=== PATIENT | male | born 1960 | race Two or more races ===

== ENCOUNTER 2020-09-12 17:22 | Inpatient (IN) ==
--- NOTE | 2020-09-12 20:24 | Emergency Department Note ---
History of Present Illness General Chief complaint: Illness Time Seen by Provider: 09/12/20 20:10 Source: patient History of Present Illness Provider complaint: Fever and chills Onset (ago): week(s) Location: head Pain Consistency: + intermittent Quality: + other (Fever and chills) Relieved By: + medication Associated symptoms: + cough, + fever/chills, + headaches, + shortness of breath (Occasional), + weakness and + other (Left rib pain); no chest pain or no nausea/vomiting This is a 60-year-old male who is HIV positive presenting with fever and chills since August 14. The patient is a heavy drinker of alcohol but he stopped drinking heavily late last month. He normally drinks about 3-4 times a week. Soon after wards he developed fever and chills. He did not take his temperature but felt feverish. He initially had profuse diarrhea but that has since resolved. He had a normal bowel movement yesterday. He has been having occasional headaches but states that he has no headache currently. He states he only gets a headache when he has the fever. He denies any chest pain but does state that he has been feeling very lightheaded and he fell 2 weeks ago onto his left ribs where he has some pain. He states is better now because he took some ibuprofen. He has some occasional shortness of breath. He denies any abdominal pain or vomiting. He did develop a cough several days ago. He is fully vaccinated for the Covid 19. He does state that he has some burning on urination. He states he has had a no rmal appetite and has been eating regularly. He had blood work for his HIV about a month ago and had a good CD4 count and an undetectable viral load. He is compliant with his medications. He denies any sick contacts or known exposure to COVID-19. Home Medications Medication Instructions Recorded Confirmed Type bictegravir 50 mg-emtricitabine 1 tab PO QAM 09/12/20 09/12/20 History 200 mg-tenofovir alafenam 25 mg tablet (Biktarvy) ibuprofen 200 mg tablet 400 mg PO Q6H PRN 09/12/20 09/12/20 History lisinopril 10 1 tab PO QAM 09/12/20 09/12/20 History mg-hydrochlorothiazide 12.5 mg tablet tamsulosin 0.4 mg capsule 0.4 mg PO PM 09/12/20 09/12/20 History Allergies Allergy/AdvReac Type Severity Reaction Status Date / Time No Known Allergies Allergy Unverified 09/12/20 21:50 Past Med/Surg History Medical History HIV positive Hypertension Social History Smoking Status: Never smoker Feels Safe at Home: Yes Review of Systems See HPI for pertinent positives & negatives. and A total of 10 systems reviewed and were otherwise negative Physical Exam Vital Signs Vital Signs - 24 hr 09/12/20 18:01 09/12/20 20:51 09/12/20 21:05 Temperature 36.7 C Temperature Source Skin Pulse Rate 110 H Pulse Rate from SpO2 Sensor 115 H Respiratory Rate 18 18 20 Respiratory Effort / Characteristics Non-Labored Spontaneous Respiratory Depth Normal Blood Pressure 95/62 L 142/92 H Blood Pressure Mean 73 108 Pulse Oximetry 97 96 96 Oxygen Delivery Method Room Air Sepsis Recent Fever Within 48 Hours No Sepsis New/Unexplained Change in Mental Status No Sepsis Action Taken by Nursing No Action Required 09/12/20 21:30 Temperature Temperature Source Pulse Rate Pulse Rate from SpO2 Sensor 110 H Respiratory Rate Respiratory Effort / Characteristics Respiratory Depth Blood Pressure 144/92 H Blood Pressure Mean 109 Pulse Oximetry 99 Oxygen Delivery Method Sepsis Recent Fever Within 48 Hours Sepsis New/Unexplained Change in Mental Status Sepsis Action Taken by Nursing Constitutional: Vital signs reviewed. Rigors. Eyes: Pupils are equal round reactive to light. Conjunctiva are noninjected. ENT: Pharynx is clear without erythema or exudate. Mucous membranes are moist. Neck supple without meningeal signs. Respiratory: Clear to auscultation bilaterally. Breath sounds are equal bilaterally. Cardiovascular: Tachycardic. Regular rhythm. GI: Soft, nondistended and nontender. Bowel sounds are present. Musculoskeletal: No peripheral edema. No lower extremity tenderness. Integumentary: No cyanosis. or jaundice. Neurological: The patient is awake and alert. No focal deficits. Psychiatric: Anxious. Course Administered Medications Discontinued Medications Sodium Chloride (Nss 1000ml) 1,000 mls @ 999 mls/hr IV .[id number] JANET Stop: 09/12/20 21:30 Last Infusion: 07/30/21 22:21 Dose: 0 mls/hr Documented by: [id number] Admin: 09/12/20 20:50 Dose: 999 mls/hr Documented by: [id number] Medical Decision Making Differential Diagnosis Sepsis, UTI, pyelonephritis, pneumonia, rib fracture, COVID-19, bacteremia Medical Records Attestation: I reviewed the patient's medical records. I did perform a limited focused review of portions of the patient's old chart on the electronic medical record. The patient has had no recent pertinent visits to this hospital. Home Medications Current Medication List: was personally reviewed by ar Laboratory Data Attestation: I reviewed the patient's lab results. Result diagrams: 09/12/20 20:12 09/12/20 20:12 Lab Results 09/12/20 09/12/20 09/12/20 Range/Units 20:12 20:12 20:12 WBC 16.19 H (4.8-10.8) K/uL RBC 3.89 L (4.7-6.1) M/uL Hgb 12.5 L (14.0-18.0) g/dL Hct 37.7 L (42-52) % MCV 96.9 (80-100) fL MCH 32.1 (25-34) pg MCHC 33.2 (32-36) g/dL RDW Std Deviation 49.5 H (36.4-46.3) fL RDW Coeff of Ana 13.9 (11.5-14.5) % Plt Count 356 (130-400) K/uL MPV 8.6 (7.4-10.4) fL Immature Gran % (Auto) 0.4 % Neut % (Auto) 79.2 % Lymph % (Auto) 12.6 % [place] % (Auto) 7.2 % Eos % (Auto) 0.4 % Baso % (Auto) 0.2 % Neut # (Auto) 12.82 H (1.4-6.5) K/uL Lymph # (Auto) 2.04 (1.2-3.4) K/uL [place] # (Auto) 1.16 H (0.11-0.59) K/uL Eos # (Auto) 0.07 (0-0.5) K/uL Baso # (Auto) 0.04 (0-0.2) K/uL Immature Gran # (Auto) 0.06 H (0.00-0.02) K/uL PT (9.0-12.0) Seconds INR (0.9-1.1) APTT (21.0-31.0) Seconds PTT Ratio Sodium 135 L (136-145) mmol/L Potassium 4.7 (3.5-5.1) mmol/L Chloride 103 (98-107) mmol/L Carbon Dioxide 23 (21-32) mmol/L Anion Gap 9.0 (3-11) BUN 20 H (7-18) mg/dl Creatinine 1.57 H (0.6-1.4) mg/dl Est Cr Clr Drug Dosing Not Reportable Est GFR ( Amer) 55.5 ml/min Est GFR (Non-Af Amer) 47.9 ml/min BUN/Creatinine Ratio 12.9 (10-20) Glucose 100 H (70-99) mg/dl Calcium 9.9 (8.5-10.1) mg/dl Magnesium 2.1 (1.8-2.4) mg/dl Total Bilirubin 0.4 (0.2-1) mg/dl AST 10 L (15-37) U/L ALT 31 (12-78) U/L Alkaline Phosphatase 111 (45-117) U/L Troponin I < 0.015 (0-0.045) ng/ml Total Protein 8.8 H (6.4-8.2) gm/dl Albumin 3.6 (3.4-5.0) gm/dl Globulin 5.2 H (2.5-4.0) gm/dl Albumin/Globulin Ratio 0.7 L (0.9-2) Procalcitonin (0-0.5) ng/ml Urine Color Urine Appearance (Clear) Urine pH (4.5-7.5) Ur Specific [place] (1.000-1.030) Urine Protein (Negative) Urine Glucose (UA) (Negative) Urine Ketones (Negative) Urine Blood (Negative) Urine Nitrite (Negative) Urine Bilirubin (Negative) Urine Urobilinogen (Negative) Ur Leukocyte Esterase (Negative) Urine WBC (Auto) (0-5) /hpf Urine RBC (Auto) (0-4) /hpf U Hyaline Cast (Auto) (0-5) /lpf U Epithel Cells (Auto) (0-5) /lpf Urine Bacteria (Auto) (Negative) Lyme Disease IgG Ab (Negative) Lyme Disease IgM Ab (Negative) COVID-19 Eval Order SARS-CoV-2 (PCR) (Negative) 09/12/20 09/12/20 09/12/20 Range/Units 20:12 20:48 20:48 WBC (4.8-10.8) K/uL RBC (4.7-6.1) M/uL Hgb (14.0-18.0) g/dL Hct (42-52) % MCV (80-100) fL MCH (25-34) pg MCHC (32-36) g/dL RDW Std Deviation (36.4-46.3) fL RDW Coeff of Ana (11.5-14.5) % Plt Count (130-400) K/uL MPV (7.4-10.4) fL Immature Gran % (Auto) % Neut % (Auto) % Lymph % (Auto) % [place] % (Auto) % Eos % (Auto) % Baso % (Auto) % Neut # (Auto) (1.4-6.5) K/uL Lymph # (Auto) (1.2-3.4) K/uL [place] # (Auto) (0.11-0.59) K/uL Eos # (Auto) (0-0.5) K/uL Baso # (Auto) (0-0.2) K/uL Immature Gran # (Auto) (0.00-0.02) K/uL PT (9.0-12.0) Seconds INR (0.9-1.1) APTT (21.0-31.0) Seconds PTT Ratio Sodium (136-145) mmol/L Potassium (3.5-5.1) mmol/L Chloride (98-107) mmol/L Carbon Dioxide (21-32) mmol/L Anion Gap (3-11) BUN (7-18) mg/dl Creatinine (0.6-1.4) mg/dl Est Cr Clr Drug Dosing Est GFR ( Amer) ml/min Est GFR (Non-Af Amer) ml/min BUN/Creatinine Ratio (10-20) Glucose (70-99) mg/dl Calcium (8.5-10.1) mg/dl Magnesium (1.8-2.4) mg/dl Total Bilirubin (0.2-1) mg/dl AST (15-37) U/L ALT (12-78) U/L Alkaline Phosphatase (45-117) U/L Troponin I (0-0.045) ng/ml Total Protein (6.4-8.2) gm/dl Albumin (3.4-5.0) gm/dl Globulin (2.5-4.0) gm/dl Albumin/Globulin Ratio (0.9-2) Procalcitonin 0.23 (0-0.5) ng/ml Urine Color Urine Appearance (Clear) Urine pH (4.5-7.5) Ur Specific [place] (1.000-1.030) Urine Protein (Negative) Urine Glucose (UA) (Negative) Urine Ketones (Negative) Urine Blood (Negative) Urine Nitrite (Negative) Urine Bilirubin (Negative) Urine Urobilinogen (Negative) Ur Leukocyte Esterase (Negative) Urine WBC (Auto) (0-5) /hpf Urine RBC (Auto) (0-4) /hpf U Hyaline Cast (Auto) (0-5) /lpf U Epithel Cells (Auto) (0-5) /lpf Urine Bacteria (Auto) (Negative) Lyme Disease IgG Ab Negative (Negative) Lyme Disease IgM Ab Negative (Negative) COVID-19 Eval Order Covid19 at [facility] SARS-CoV-2 (PCR) NEGATIVE (Negative) 09/12/20 09/12/20 Range/Units 22:15 22:40 WBC (4.8-10.8) K/uL RBC (4.7-6.1) M/uL Hgb (14.0-18.0) g/dL Hct (42-52) % MCV (80-100) fL MCH (25-34) pg MCHC (32-36) g/dL RDW Std Deviation (36.4-46.3) fL RDW Coeff of Ana (11.5-14.5) % Plt Count (130-400) K/uL MPV (7.4-10.4) fL Immature Gran % (Auto) % Neut % (Auto) % Lymph % (Auto) % [place] % (Auto) % Eos % (Auto) % Baso % (Auto) % Neut # (Auto) (1.4-6.5) K/uL Lymph # (Auto) (1.2-3.4) K/uL [place] # (Auto) (0.11-0.59) K/uL Eos # (Auto) (0-0.5) K/uL Baso # (Auto) (0-0.2) K/uL Immature Gran # (Auto) (0.00-0.02) K/uL PT 10.7 (9.0-12.0) Seconds INR 1.1 (0.9-1.1) APTT 28.9 (21.0-31.0) Seconds PTT Ratio 1.1 Sodium (136-145) mmol/L Potassium (3.5-5.1) mmol/L Chloride (98-107) mmol/L Carbon Dioxide (21-32) mmol/L Anion Gap (3-11) BUN (7-18) mg/dl Creatinine (0.6-1.4) mg/dl Est Cr Clr Drug Dosing Est GFR ( Amer) ml/min Est GFR (Non-Af Amer) ml/min BUN/Creatinine Ratio (10-20) Glucose (70-99) mg/dl Calcium (8.5-10.1) mg/dl Magnesium (1.8-2.4) mg/dl Total Bilirubin (0.2-1) mg/dl AST (15-37) U/L ALT (12-78) U/L Alkaline Phosphatase (45-117) U/L Troponin I (0-0.045) ng/ml Total Protein (6.4-8.2) gm/dl Albumin (3.4-5.0) gm/dl Globulin (2.5-4.0) gm/dl Albumin/Globulin Ratio (0.9-2) Procalcitonin (0-0.5) ng/ml Urine Color Yellow Urine Appearance Turbid A (Clear) Urine pH 5.5 (4.5-7.5) Ur Specific [place] 1.008 (1.000-1.030) Urine Protein Trace H (Negative) Urine Glucose (UA) Negative (Negative) Urine Ketones Negative (Negative) Urine Blood 1+ H (Negative) Urine Nitrite Negative (Negative) Urine Bilirubin Negative (Negative) Urine Urobilinogen Negative (Negative) Ur Leukocyte Esterase 3+ H (Negative) Urine WBC (Auto) >30 H (0-5) /hpf Urine RBC (Auto) 0-4 (0-4) /hpf U Hyaline Cast (Auto) 1-5 (0-5) /lpf U Epithel Cells (Auto) 20-30 H (0-5) /lpf Urine Bacteria (Auto) 3+ H (Negative) Lyme Disease IgG Ab (Negative) Lyme Disease IgM Ab (Negative) COVID-19 Eval Order SARS-CoV-2 (PCR) (Negative) Imaging Data Radiologist's Impression: Ribs w/Chest X-Ray 09/12/20 20:20 XR ribs LT min 2V w CXR1V HISTORY: 60 years-old Male pain and cough eval for fx/pna acute left-sided chest pain with cough COMPARISON: None TECHNIQUE: PA view of the chest with 4 views of the left ribs FINDINGS: Cardiomediastinal and hilar silhouettes are within normal limits. No pneumothorax, pleural effusion, airspace consolidation or overt pulmonary edema. Bones of the chest appear grossly intact. Mild cortical thickening of the lateral left eighth and ninth ribs suggestive of chronic fractures. Acute minimally displaced fractures involving the anterolateral aspects of the left eighth through 11th ribs. IMPRESSION: 1. Acute minimally displaced fractures of the anterolateral left eighth through 11th ribs. 2. No pneumothorax. ACT 112: Negative or not required by law. The above report was generated using voice recognition software. It may contain grammatical, syntax or spelling errors. Electronically signed by: Monroe Lowery M.D. 09/12/2020 10:[address] 09/12/20 20:27 CT head/brain wo con CLINICAL HISTORY: 60 years-old Male with NICOLAS. Acute headache TECHNIQUE: Multiple axial CT images of the head were obtained without contrast. A dose lowering technique was utilized adhering to the principles of ALARA. CT DOSE: 614.27 mGy.cm COMPARISON: None. FINDINGS: No acute intracranial hemorrhage, midline shift, intracranial mass, hydrocephalus, territorial ischemia or abnormal extra-axial collection. Mild involutional changes. The calvarium is intact. Mastoid air cells are clear. Mild polypoid thickening of the left maxillary sinus with mild mucosal thickening of the ethmoid air cells. Unremarkable soft tissues and orbits. IMPRESSION: No acute intracranial abnormality. ACT 112: Negative or not required by law. The above report was generated using voice recognition software. It may contain grammatical, syntax or spelling errors. Electronically signed by: Monroe Lowery M.D. 09/12/2020 9:58 PM MDM Narrative I did evaluate the patient as noted above. He is presenting with fevers and chills since February 14. He has rigors on my examination. He does state that he has urinary symptoms as well. He is HIV positive but well controlled. IV access was established. I did place an order for continuous cardiac monitoring. The monitor showed sinus tachycardia at a rate of 110 bpm. I did order a twelve-lead EKG but the patient was able to stop shaking and we were unable to get 1. I did order and personally reviewed the images of the patient's chest x- ray as described above. There is no evidence of pneumonia. He does have minimally displaced fractures of the anterior lateral left eighth through 11th ribs. There is no pneumothorax. I did order a urine analysis. He does have a UTI and he does state that he has been having dysuria. Blood cultures were ordered. I did treat the patient with daptomycin IV. I did order and review the patient's blood work as noted in the electronic medical record. His white blood cell count is elevated at 16,000. Hemoglobin is 12.5. Electrolytes demonstrate a sodium 135. BUN and creatinine are elevated at 20 and 1.57. Procalcitonin is not elevated. Troponin is negative. Lyme testing is negative. Covid testing is negative. I did discuss the test results with the patient. He stated he wanted something for his fever. He felt warm again. He was given Tylenol 1 g p.o. He stated that he did not need anything for his rib fractures as the pain was under control. I did recommend hospitalization. I did discuss case with the hospitalist and sample case porter. Impression & Plan Sepsis, Acute UTI, Acute dehydration, Elevated serum creatinine, Multiple fractures of ribs Discharge Plan Visit Data Chief Complaint: Illness ED Provider: Tima Martell Discharge Problem: Sepsis, Acute UTI, Acute dehydration, Elevated serum creatinine, Multiple fractures of ribs Patient Disposition: Being Evaluated by Hospitalist Forms Stand Alone Forms: My [facility] Prescriptions Prescriptions: No Action tamsulosin 0.4 mg capsule 0.4 mg PO PM RF: 0 lisinopril-hydrochlorothiazide 10-12.5 mg tablet 1 tab PO QAM RF: 0 Biktarvy 50-200-25 mg tablet 1 tab PO QAM RF: 0 ibuprofen 200 mg Tablet 400 mg PO Q6H PRN (Reason: Pain) RF: 0 Referrals Referrals: PCP,NO [Primary Care Provider] -
[2020-09-12 20:25] LABS: Basophils # (auto) 0.04 K/uL (0-0.2); Basophils % (auto) 0.2 %; Eosinophils # (auto) 0.07 K/uL (0-0.5); Eosinophils % (auto) 0.4 %; Hematocrit (blood only) 37.7 % (42-52); Hemoglobin 12.5 g/dL (14.0-18.0); Immature Granulocytes # (auto) 0.06 K/uL (0.00-0.02); Immature Granulocytes % (auto) 0.4 %; Lymphocytes # (auto) 2.04 K/uL (1.2-3.4); Lymphocytes % (auto) 12.6 %; Mean Corpuscular Hemoglobin 32.1 pg (25-34); Mean Corpuscular Hgb Conc 33.2 g/dL (32-36); Mean Corpuscular Volume 96.9 fL (80-100); Mean Platelet Volume 8.6 fL (7.4-10.4); Monocytes # (auto) 1.16 K/uL (0.11-0.59); Monocytes % (auto) 7.2 %; Neutrophils # (auto) 12.82 K/uL (1.4-6.5); Neutrophils % (auto) 79.2 %; Platelet Count 356 K/uL (130-400); RDW Coefficient of Variation 13.9 % (11.5-14.5); RDW Standard Deviation 49.5 fL (36.4-46.3); Red Blood Count 3.89 M/uL (4.7-6.1); White Blood Count 16.19 K/uL (4.8-10.8)
[2020-09-12] MEDS ORDERED: SODIUM CHLORIDE 0.9% 1000ML 1,000 ML IV SCH (20:30)
[2020-09-12 20:42] LABS: Alanine Aminotransferase 31 U/L (12-78); Albumin Level 3.6 gm/dl (3.4-5.0); Aspartate Aminotransferase 10 U/L (15-37); BUN Creatinine Ratio 12.9 (10-20); Blood Urea Nitrogen 20 mg/dl (7-18); Calcium 9.9 mg/dl (8.5-10.1); Carbon Dioxide 23 mmol/L (21-32); Chloride 103 mmol/L (98-107); Est GFR (African American) 55.5 ml/min; Est GFR (Non-African American) 47.9 ml/min; Glucose 100 mg/dl (70-99); Potassium 4.7 mmol/L (3.5-5.1); Sodium 135 mmol/L (136-145)
[2020-09-12 20:44] LABS: Albumin Globulin Ratio 0.7 (0.9-2); Alkaline Phosphatase 111 U/L (45-117); Bilirubin,Total 0.4 mg/dl (0.2-1); Globulin 5.2 gm/dl (2.5-4.0); Total Protein 8.8 gm/dl (6.4-8.2)
[2020-09-12 21:12] LABS: Magnesium 2.1 mg/dl (1.8-2.4); Troponin I < 0.015 ng/ml (0-0.045)
--- NOTE | 2020-09-12 21:59 | CT Scan Report ---
CT head/brain wo con CLINICAL HISTORY: 60 years-old Male with NICOLAS. Acute headache TECHNIQUE: Multiple axial CT images of the head were obtained without contrast. A dose lowering tech nique was utilized adhering to the principles of ALARA. CT DOSE: 614.27 mGy.cm COMPARISON: None. FINDINGS: No acute intracranial hemorrhage, midline shift, intracranial mass, hydrocephalus, territorial ischem ia or abnormal extra-axial collection. Mild involutional changes. The calvarium is intact. Mastoid air cells are clear. Mild polypoid thickening of the left maxillary sinus with mild mucosal thickening of the ethmoid air cells. Unremarkable soft tissues and orbits. IMPRESSION: No acute intracranial abnormality. ACT 112: Negative or not required by law. The above report was generated using voice recognition software. It may contain grammatical, syntax o r spelling errors. Electronically signed by: Monroe Lowery M.D. 09/12/2020 9:58 PM
[2020-09-12 22:00] LABS: Procalcitonin 0.23 ng/ml (0-0.5)
[2020-09-12 22:06] LABS: Lyme Ab IgG w/WB Rflx Negative (Negative); Lyme Ab IgM w/WB Rflx Negative (Negative)
--- NOTE | 2020-09-12 22:19 | XRay Report ---
XR ribs LT min 2V w CXR1V HISTORY: 60 years-old Male pain and cough eval for fx/pna acute left-sided chest pain with cough COMPARISON: None TECHNIQUE: PA view of the chest with 4 views of the left ribs FINDINGS: Cardiomediastinal and hilar silhouettes are within normal limits. No pneumothorax, pleural effusion, airspace consolidation or overt pulmonary edema. Bones of the chest appear grossly intact. Mild corti gloria thickening of the lateral left eighth and ninth ribs suggestive of chronic fractures. Acute minim ally displaced fractures involving the anterolateral aspects of the left eighth through 11th ribs. IMPRESSION: 1. Acute minimally displaced fractures of the anterolateral left eighth through 11th ribs. 2. No pneumothorax. ACT 112: Negative or not required by law. The above report was generated using voice recognition software. It may contain grammatical, syntax o r spelling errors. Electronically signed by: Monroe Lowery M.D. 09/12/2020 10:18 PM
[2020-09-12 22:39] LABS: Appearance Urine Turbid (Clear); Bacteria Urine Automated 3+ (Negative); Bilirubin Urine Negative (Negative); Blood Urine 1+ (Negative); Color Urine Yellow; Epithelial Cell Urine Auto 20-30 /lpf (0-5); Glucose Urine UA Negative (Negative); Ketones Urine Negative (Negative); Leukocyte Esterase Urine 3+ (Negative); Nitrite Urine Negative (Negative); Protein Urine Trace (Negative); RBC Urine Automated 0-4 /hpf (0-4); Specific Gravity Urine 1.008 (1.000-1.030); Urobilinogen Urine Negative (Negative); WBC Urine Automated >30 /hpf (0-5); pH Urine 5.5 (4.5-7.5)
[2020-09-12] MEDS ORDERED: DAPTOmycin 475 MG in SYRINGE 0 ML IV ONE (22:47)
[2020-09-12] MEDS ORDERED: ACETAMINOPHEN 500 MG TAB PO STA (23:00)
[2020-09-12 23:04] LABS: INR 1.1 (0.9-1.1); Partial Thromboplastin Ratio 1.1; Partial Thromboplastin Time 28.9 Seconds (21.0-31.0); Prothrombin Time 10.7 Seconds (9.0-12.0)
[2020-09-12] MEDS ORDERED: CEFEPIME 2,000 MG/20 ML VIAL IV STA (23:55)
[2020-09-12] MEDS ORDERED: LACTATED RINGER'S 1,000 ML IV ONE (23:56)
[2020-09-13] MEDS ORDERED: THIAMINE HCL 100 MG in SYRINGE 9 ML IV STA (00:08)
--- NOTE | 2020-09-13 01:21 | History & Physical Report ---
Date of Service September 13, 2020 Assessment & Plan (1) Severe sepsis: Plan: SIRS plus ARF secondary to complicated UTI, history of BPH rule out obstructive uropathy given abdominal complaints May need to rule out endocarditis given 1 month history/account of intermittent fever chills HIV disease on Rx, stable disease as per patient Patient follows with a specialist from [place]. Hypotension secondary to illness Possible explanation for dizziness/orthostasis symptoms noted by patient, some of which had led to falls resulting in left rib fractures Rule out cardiac dysfunction Intermittent headache symptoms coinciding with fever, chills. May need to rule out HIV related neurologic conditions/space-occupying lesions if persistent New onset anemia past tobacco/alcohol abuse PCU given hypotensive episodes CS, Zosyn Monitor creatinine response to IVF CT abdomen pelvis RE abdominal pain, constipation, ARF Appropriate to hold home BP meds for now given orthostasis symptoms. TTE Re: Hypotension, dizziness Anemia work-up, transfuse PRBC if hemoglobin less than 7 and or for symptomatic anemia May need to obtain recent outpatient records from patient's PCP/HIV specialist from [place]. DVT prophylaxis. SCDs for now until bleeding ruled out. Heparin subcu once bleeding ruled out Full code Text document was generated using [employer] voice recognition software. It may contain grammatical or spelling errors. Kindly contact undersigned for clarification of any documentation item in question. History of Present Illness Chief Complaint: Sick for a month as per patient Primary Care Provider: Dr. Aaron Huddleston from [place] History obtained from patient and records. Medical history significant for HIV disease on Rx, hypertension, BPH, past tobacco/alcohol abuse. Patient has not been feeling well for about a month. Intermittent fever and chills with episodic headaches. Transient diarrhea symptoms. Dizziness described as lightheadedness upon motion and exertion which has led to some falls causing left rib pain. No shortness of breath. No unusual cough symptoms. Unquantified weight loss. Patient compliant with HIV medications. Recent HIV blood work from a few months ago was good as per patient. More recently, patient noted constipation symptoms with dysuria. Some abdominal discomfort without black/bloody stools. At the ER, patient received daptomycin for sepsis. SBP 70 to 80s at one point at the ER. Medical History as above Surgical History : None Family History : Heart disease Personal/Social history : Past tobacco/alcohol abuse, currently unemployed Allergies Allergy/AdvReac Type Severity Reaction Status Date / Time No Known Allergies Allergy Unverified 09/12/20 21:50 Home Medications Medication Instructions Recorded Confirmed Type bictegravir 50 mg-emtricitabine 1 tab PO QAM 09/12/20 09/12/20 History 200 mg-tenofovir alafenam 25 mg tablet (Biktarvy) ibuprofen 200 mg tablet 400 mg PO Q6H PRN 09/12/20 09/12/20 History lisinopril 10 1 tab PO QAM 09/12/20 09/12/20 History mg-hydrochlorothiazide 12.5 mg tablet tamsulosin 0.4 mg capsule 0.4 mg PO PM 09/12/20 09/12/20 History Past Med/Surg History Medical History HIV positive Hypertension Social History Smoking Status: Former smoker Hx Alcohol Use: Yes Hx Substance Use: No Preferred Language: Portuguese Communication Ability: Effective Material Distributor Required: No Beliefs That Will Affect Care: None Current Living Situation: Alone Other Information That Helps Us Care for You: No Feels Safe at Home: Yes Safety Concerns: Feels Safe At This Time Assistive Devices: Glasses Review of Systems Review of Systems: As per HPI, all 10 systems reviewed, all other ROS negative Physical Exam Physical Exam: GENERAL: Comfortable, pleasant, no respiratory distress SKIN: Pallor,, warm HEENT: Pale palpebral conjunctivae, no ptosis, dry buccal mucosa NECK : Supple, no tenderness CHEST : CTA, left chest wall tenderness HEART : Tachycardic, no obvious murmurs ABDOMEN: Some distention, nontender EXTREMITIES : No LE swelling/tenderness, no other conspicuous deformities noted NEUROLOGIC : Coherent, no facial asymmetry, no other gross focality Results & Data Results & [facility] ([facility]) Vital Signs (Past 12 Hours) Vital Signs Temp Pulse Pulse Resp BP BP Pulse Ox 09/13/20 00:43 37.9 C H 09/12/20 23:46 39.6 C H 114 H 18 124/79 99 09/12/20 21:30 144/92 H 99 09/12/20 21:05 20 142/92 H 96 09/12/20 20:51 18 96 09/12/20 18:01 36.7 C 110 H 18 95/62 L 97 Laboratory Results Laboratory Results WBC 16.19 K/uL (4.8-10.8) H 09/12/20 20:12 RBC 3.89 M/uL (4.7-6.1) L 09/12/20 20:12 Hgb 12.5 g/dL (14.0-18.0) L 09/12/20 20:12 Hct 37.7 % (42-52) L 09/12/20 20:12 MCV 96.9 fL (80-100) 09/12/20 20:12 MCH 32.1 pg (25-34) 09/12/20 20:12 MCHC 33.2 g/dL (32-36) 09/12/20 20:12 RDW Std Deviation 49.5 fL (36.4-46.3) H 09/12/20 20:12 RDW Coeff of Ana 13.9 % (11.5-14.5) 09/12/20 20:12 Plt Count 356 K/uL (130-400) 09/12/20 20:12 MPV 8.6 fL (7.4-10.4) 09/12/20 20:12 Immature Gran % (Auto) 0.4 % 09/12/20 20:12 Neut % (Auto) 79.2 % 09/12/20 20:12 Lymph % (Auto) 12.6 % 09/12/20 20:12 [place] % (Auto) 7.2 % 09/12/20 20:12 Eos % (Auto) 0.4 % 09/12/20 20:12 Baso % (Auto) 0.2 % 09/12/20 20:12 Neut # (Auto) 12.82 K/uL (1.4-6.5) H 09/12/20 20:12 Lymph # (Auto) 2.04 K/uL (1.2-3.4) 09/12/20 20:12 [place] # (Auto) 1.16 K/uL (0.11-0.59) H 09/12/20 20:12 Eos # (Auto) 0.07 K/uL (0-0.5) 09/12/20 20:12 Baso # (Auto) 0.04 K/uL (0-0.2) 09/12/20 20:12 Immature Gran # (Auto) 0.06 K/uL (0.00-0.02) H 09/12/20 20:12 PT 10.7 Seconds (9.0-12.0) 09/12/20 22:40 INR 1.1 (0.9-1.1) 09/12/20 22:40 APTT 28.9 Seconds (21.0-31.0) 09/12/20 22:40 PTT Ratio 1.1 09/12/20 22:40 Sodium 135 mmol/L (136-145) L 09/12/20 20:12 Potassium 4.7 mmol/L (3.5-5.1) 09/12/20 20:12 Chloride 103 mmol/L (98-107) 09/12/20 20:12 Carbon Dioxide 23 mmol/L (21-32) 09/12/20 20:12 Anion Gap 9.0 (3-11) 09/12/20 20:12 BUN 20 mg/dl (7-18) H 09/12/20 20:12 Creatinine 1.57 mg/dl (0.6-1.4) H 09/12/20 20:12 Est Cr Clr Drug Dosing Not Reportable 09/12/20 20:12 Est GFR ( Amer) 55.5 ml/min 09/12/20 20:12 Est GFR (Non-Af Amer) 47.9 ml/min 09/12/20 20:12 BUN/Creatinine Ratio 12.9 (10-20) 09/12/20 20:12 Glucose 100 mg/dl (70-99) H 09/12/20 20:12 Lactate 1.5 mmol/L (0.4-2.0) 09/12/20 22:40 Calcium 9.9 mg/dl (8.5-10.1) 09/12/20 20:12 Magnesium 2.1 mg/dl (1.8-2.4) 09/12/20 20:12 Total Bilirubin 0.4 mg/dl (0.2-1) 09/12/20 20:12 AST 10 U/L (15-37) L 09/12/20 20:12 ALT 31 U/L (12-78) 09/12/20 20:12 Alkaline Phosphatase 111 U/L (45-117) 09/12/20 20:12 Troponin I < 0.015 ng/ml (0-0.045) 09/12/20 20:12 Total Protein 8.8 gm/dl (6.4-8.2) H 09/12/20 20:12 Albumin 3.6 gm/dl (3.4-5.0) 09/12/20 20:12 Globulin 5.2 gm/dl (2.5-4.0) H 09/12/20 20:12 Albumin/Globulin Ratio 0.7 (0.9-2) L 09/12/20 20:12 Procalcitonin 0.23 ng/ml (0-0.5) 09/12/20 20:12 Urine Color Yellow 09/12/20 22:15 Urine Appearance Turbid (Clear) A 09/12/20 22:15 Urine pH 5.5 (4.5-7.5) 09/12/20 22:15 Ur Specific [place] 1.008 (1.000-1.030) 09/12/20 22:15 Urine Protein Trace (Negative) H 09/12/20 22:15 Urine Glucose (UA) Negative (Negative) 09/12/20 22:15 Urine Ketones Negative (Negative) 09/12/20 22:15 Urine Blood 1+ (Negative) H 09/12/20 22:15 Urine Nitrite Negative (Negative) 09/12/20 22:15 Urine Bilirubin Negative (Negative) 09/12/20 22:15 Urine Urobilinogen Negative (Negative) 09/12/20 22:15 Ur Leukocyte Esterase 3+ (Negative) H 09/12/20 22:15 Urine WBC (Auto) >30 /hpf (0-5) H 09/12/20 22:15 Urine RBC (Auto) 0-4 /hpf (0-4) 09/12/20 22:15 U Hyaline Cast (Auto) 1-5 /lpf (0-5) 09/12/20 22:15 U Epithel Cells (Auto) 20-30 /lpf (0-5) H 09/12/20 22:15 Urine Bacteria (Auto) 3+ (Negative) H 09/12/20 22:15 Lyme Disease IgG Ab Negative (Negative) 09/12/20 20:12 Lyme Disease IgM Ab Negative (Negative) 09/12/20 20:12 COVID-19 Eval Order Covid19 at [facility] 09/12/20 20:48 SARS-CoV-2 (PCR) NEGATIVE (Negative) 09/12/20 20:48 Impressions Ribs w/Chest X-Ray 09/12/20 20:20 XR ribs LT min 2V w CXR1V HISTORY: 60 years-old Male pain and cough eval for fx/pna acute left-sided chest pain with cough COMPARISON: None TECHNIQUE: PA view of the chest with 4 views of the left ribs FINDINGS: Cardiomediastinal and hilar silhouettes are within normal limits. No pneumothorax, pleural effusion, airspace consolidation or overt pulmonary edema. Bones of the chest appear grossly intact. Mild cortical thickening of the lateral left eighth and ninth ribs suggestive of chronic fractures. Acute minimally displaced fractures involving the anterolateral aspects of the left eighth through 11th ribs. IMPRESSION: 1. Acute minimally displaced fractures of the anterolateral left eighth through 11th ribs. 2. No pneumothorax. ACT 112: Negative or not required by law. The above report was generated using voice recognition software. It may contain grammatical, syntax or spelling errors. Electronically signed by: Monroe Lowery M.D. 09/12/2020 10:[address] 09/12/20 20:27 CT head/brain wo con CLINICAL HISTORY: 60 years-old Male with NICOLAS. Acute headache TECHNIQUE: Multiple axial CT images of the head were obtained without contrast. A dose lowering technique was utilized adhering to the principles of ALARA. CT DOSE: 614.27 mGy.cm COMPARISON: None. FINDINGS: No acute intracranial hemorrhage, midline shift, intracranial mass, hydrocephalus, territorial ischemia or abnormal extra-axial collection. Mild involutional changes. The calvarium is intact. Mastoid air cells are clear. Mild polypoid thickening of the left maxillary sinus with mild mucosal thickening of the ethmoid air cells. Unremarkable soft tissues and orbits. IMPRESSION: No acute intracranial abnormality. ACT 112: Negative or not required by law. The above report was generated using voice recognition software. It may contain grammatical, syntax or spelling errors. Electronically signed by: Monroe Lowery M.D. 09/12/2020 9:58 PM Diagnostic Findings EKG as per my interpretation : Rate 115, sinus tachycardia, normal axis, no ischemia
[2020-09-13 02:03] LABS: Thyroid Stimulating Hormone 0.411 uIu/ml (0.300-4.500)
[2020-09-13] MEDS ORDERED: POLYETHYLENE (MIRALAX) 17 GM PACK PO PRN (02:30)
[2020-09-13] MEDS ORDERED: DOCUSATE SODIUM/SENNA 50/8.6MG TAB PO STA (02:35)
[2020-09-13 02:44] LABS: Lipase 337 U/L (73-393)
[2020-09-13] MEDS ORDERED: oxyCODONE HCL IR 5 MG TAB (IMMEDIATE RELEASE) PO PRN (02:50)
[2020-09-13] MEDS ORDERED: PROMETHAZINE HCL 12.5 MG in SODIUM CHLORIDE 0.9% 50 ML IV PRN (02:50)
[2020-09-13] MEDS ORDERED: CEFEPIME CONSULT ACTIVE PRN (02:50)
[2020-09-13] MEDS ORDERED: LACTATED RINGER'S 1,000 ML IV ONE (03:00)
[2020-09-13] MEDS ORDERED: PIPERACILL/TAZOBAC CONSULT ACTIVE PRN (03:26)
[2020-09-13] MEDS ORDERED: PIPERACILLIN/TAZOBACTAM 4.5 GM in DEXTROSE 5% 100 ML IV ONE (04:00)
[2020-09-13] MEDS: ACETAMINOPHEN 325 MG TAB PO PRN ×3 (05:16→21:07)
[2020-09-13 05:33] LABS: Basophils # (auto) 0.03 K/uL (0-0.2); Basophils % (auto) 0.2 %; Eosinophils # (auto) 0.09 K/uL (0-0.5); Eosinophils % (auto) 0.6 %; Hematocrit (blood only) 34.2 % (42-52); Hemoglobin 11.3 g/dL (14.0-18.0); Immature Granulocytes # (auto) 0.04 K/uL (0.00-0.02); Immature Granulocytes % (auto) 0.3 %; Lymphocytes # (auto) 2.12 K/uL (1.2-3.4); Lymphocytes % (auto) 15.2 %; Mean Corpuscular Hemoglobin 31.7 pg (25-34); Mean Corpuscular Volume 95.8 fL (80-100); Mean Platelet Volume 8.5 fL (7.4-10.4); Monocytes # (auto) 1.52 K/uL (0.11-0.59); Monocytes % (auto) 10.9 %; Neutrophils # (auto) 10.11 K/uL (1.4-6.5); Neutrophils % (auto) 72.8 %; Platelet Count 296 K/uL (130-400); RDW Coefficient of Variation 14.1 % (11.5-14.5); Red Blood Count 3.57 M/uL (4.7-6.1); Reticulocyte % 1.2 % (0.5-2.0); Reticulocytes # 0.04 10^6/uL (0.02-0.10); White Blood Count 13.91 K/uL (4.8-10.8)
[2020-09-13 05:58] LABS: BUN Creatinine Ratio 13.3 (10-20); Est GFR (African American) 51.1 ml/min; Est GFR (Non-African American) 44.1 ml/min; Potassium 4.7 mmol/L (3.5-5.1)
[2020-09-13 06:03] LABS: Ferritin 428.1 ng/ml (8-388)
[2020-09-13 06:37] LABS: Folate (Folic Acid) > 20.00 ng/ml (>5.38); Vitamin B12 740 pg/ml (193-986)
[2020-09-13] MEDS: SODIUM CHLORIDE 0.9% 1000ML 1,000 ML IV SCH ×2 (06:47→08:14)
--- NOTE | 2020-09-13 07:48 | Electrocardiogram Report ---
Test Reason : Blood Pressure : / mmHG Vent. Rate : 116 BPM Atrial Rate : 116 BPM P-R Int : 166 ms QRS Dur : 076 ms QT Int : 326 ms P-R-T Axes : 051 055 046 degrees QTc Int : 453 ms Sinus tachycardia Otherwise normal ECG No previous ECGs available Confirmed by Gino Potter ([id number]) on 09/13/2020 7:47:56 AM Referred By: REFERRED SELF Confirmed By:Gino Potter
--- NOTE | 2020-09-13 08:21 | CT Scan Report ---
CT SCAN OF THE ABDOMEN AND PELVIS WITHOUT IV CONTRAST CLINICAL HISTORY: Generalized abdominal pain. Diarrhea and fever. COMPARISON STUDY: No priors. TECHNIQUE: CT scan of the abdomen and pelvis is performed from the lung bases to the proximal femora. Images are reviewed in the axial, sagittal, and coronal planes. IV contrast was not administered for this examination. Note that the examination was performed in significant suboptimal fashion without oral and IV contrast. A dose lowering technique was utilized adhering to the principles of ALARA. CT DOSE: 332.32 mGy.cm FINDINGS: Lung bases: The heart is normal in size and without pericardial effusion. There is mild elevation of the right hemidiaphragm. The lung bases are clear. There is a small hiatal hernia. Liver: The unenhanced liver is normal in size, contour, and attenuation. There is no intrahepatic abi iary ductal dilatation. Gallbladder: Unremarkable. Spleen: Normal in size and attenuation. Pancreas: Unremarkable. Adrenal glands: Unremarkable. Kidneys: The unenhanced kidneys are normal in size and without hydronephrosis. There is a 4 mm nonobs tructing calculus in the left lower pole. No right renal calculi are identified. No ureteral stone is seen. There is no evidence of contour deforming renal mass lesion. Abdominal vasculature: The abdominal aorta is normal in course and caliber noting moderate atheroscle rotic calcification. Bowel: There is no bowel obstruction. Moderate fecal retention is seen throughout the colon. The appe ndix is well-visualized and normal. Peritoneum: There is no intraperitoneal free air or abdominal ascites. There is a fat-containing umbi lical hernia. Lymphadenopathy: None. Pelvic viscera: The prostate gland is mildly enlarged and heterogeneous. The bladder wall appears thi ckened and trabeculated. Skeletal structures: No lytic or blastic lesions are seen. There are subacute appearing/healing left anterolateral 8th through 11th rib fractures. IMPRESSION: 1. Suboptimal examination without oral and IV contrast. 2. Moderate constipation. No bowel obstruction is seen. 3. The bladder wall appears thickened and trabeculated. This may be related to chronic outlet obstruc tion. Correlate with clinical findings and urinalysis. 4. Left-sided nephrolithiasis. 5. There are subacute appearing left lower rib fractures. Clinical correlation will be required. ACT 112: Negative or not required by law. Electronically signed by: Wicho Simon M.D. 09/13/2020 8:20 AM
[2020-09-13] MEDS: PIPERACILLIN/TAZOBACTAM 3.375 GM in DEXTROSE 5% 100 ML IV SCH ×3 (09:06→23:25)
[2020-09-13] MEDS: BIKTARVY PO SCH (09:06)
[2020-09-13] MEDS: DOCUSATE SODIUM/SENNA 50/8.6MG TAB PO SCH (09:07)
[2020-09-13] MEDS ORDERED: SODIUM CHLORIDE 0.9% 1000ML 1,000 ML IV SCH (18:00)
--- NOTE | 2020-09-13 18:45 | Hospitalist Progress Note ---
Date of Service September 13, 2020 Assessment & Plan (1) Severe sepsis: (2) Acute UTI: Plan: Meet sepsis criteria with elevated tachycardia, febrile, WBC and abnormal UA COVID 19 negative CXR showed no acute finding CT abd/pelvis showed bladder wall appears thickened and trabeculated. received Dapto/ Cefepime and IV Zosyn on admission Urine cx grew gram negative bacilli Echo pending Continue IVF and IV abx with Zosyn Blood cx pending Continue monitor closely IRIS Possible related to dehydration/sepsis unknown baseline creatinine, Pt said that no providers in the past mentioned that he had any hx CKD Creatinine on admission 1.5, worsening to 1.68 Continue IVF Continue monitor BMP HIV Continue HIV treatment Hypotension Mostly due to sepsis/dehydration Continue to hold Lisinopril/HCTZ Continue IVF Continue monitor BP Dizziness Possible related to hypotension CT head showed no acute finding Clinically improves Anemia Hgb on admission 12.5 Hgb 11.3 Continue monitor CBC DVT prophylaxis due to new onset of anemia Full code Admission and Anticipated Discharge Date Admission Date: September 13, 2020 Subjective pt was seen and examined for follow up of fever Lying in bed with no acute distress Pt said that early today he felt cold Denies any chest pain, palpitation and SOB Physical Exam Physical Exam: General- No acute distress Head- atraumatic Eyes- PERRL, EOMI, ENT- oropharynx clear Neck- supple, no JVD Lungs- clear to auscultation Heart- regular rhythm; no murmur Abdomen- normal bowel sounds, soft, nontender Extremities- no calf tenderness Neuro- alert, oriented x 3; PERRL, EOMI; no facial palsy; no dysarthria Skin- warm & dry Results & Data Results & Data ([facility]) Vital Signs (Past 12 Hours) Vital Signs Temp Pulse Resp BP Pulse Ox 09/13/20 16:05 37.2 C 89 17 100/65 97 09/13/20 10:51 37.0 C 91 H 17 106/68 99 09/13/20 09:09 37.1 C 99 H 16 100/64 95
[2020-09-14] MEDS ORDERED: CEFEPIME 2,000 MG in SYRINGE 0 ML IV SCH
[2020-09-14] MEDS: PIPERACILLIN/TAZOBACTAM 3.375 GM in DEXTROSE 5% 100 ML IV SCH (08:26)
[2020-09-14] MEDS: DOCUSATE SODIUM/SENNA 50/8.6MG TAB PO SCH (08:28)
[2020-09-14] MEDS: BIKTARVY PO SCH (08:28)
[2020-09-14 08:59] LABS: Hematocrit (blood only) 28.2 % (42-52); Hemoglobin 9.3 g/dL (14.0-18.0); Mean Corpuscular Hemoglobin 31.4 pg (25-34); Mean Corpuscular Volume 95.3 fL (80-100); Mean Platelet Volume 8.5 fL (7.4-10.4); Platelet Count 256 K/uL (130-400); RDW Coefficient of Variation 14.2 % (11.5-14.5); RDW Standard Deviation 49.5 fL (36.4-46.3); Red Blood Count 2.96 M/uL (4.7-6.1); White Blood Count 14.64 K/uL (4.8-10.8)
[2020-09-14 09:20] LABS: BUN Creatinine Ratio 12.3 (10-20); Calcium 8.7 mg/dl (8.5-10.1); Creatinine Clr Calc Pharmacy 55.3 ml/min; Est GFR (African American) 59.1 ml/min
[2020-09-14 10:06] LABS: Potassium 3.6 mmol/L (3.5-5.1)
[2020-09-14] MEDS: ceFAZolin 1000MG 1,000 MG/7.5 ML SYR IV SCH ×2 (17:15→23:17)
--- NOTE | 2020-09-14 23:47 | Hospitalist Progress Note ---
Date of Service September 14, 2020 Assessment & Plan (1) Severe sepsis: (2) Acute UTI: Plan: Meet sepsis criteria with elevated tachycardia, febrile, WBC and abnormal UA COVID 19 negative CXR showed no acute finding CT abd/pelvis showed bladder wall appears thickened and trabeculated. received Dapto/ Cefepime and IV Zosyn on admission Urine cx grew gram negative bacilli - Ecoli Echo showed no evidence of vegetation IV Zosyn was discontinued and transition to Cefazolin Blood cx no growth Continue monitor closely IRIS Possible related to dehydration/sepsis unknown baseline creatinine, Pt said that no providers in the past mentioned that he had any hx CKD Creatinine on admission 1.5 than increased to 1.68 Creatinine improved to 1.4 today Continue IVF Continue monitor BMP HIV Continue HIV meds treatment Hypotension Mostly due to sepsis/dehydration Continue to hold Lisinopril/HCTZ Continue IVF Continue monitor BP Dizziness Possible related to hypotension CT head showed no acute finding Clinically improves Anemia Hgb on admission 12.5 Hgb 11.3 then dropped to 9.3 (possible due to dilution) Continue monitor CBC DVT prophylaxis due to new onset of anemia Full code Admission and Anticipated Discharge Date Admission Date: September 13, 2020 Subjective Pt was seen and examined for follow up of fever Sitting in bed with no acute distress Last night he was febrile and early this morning he had some chills Pt said that he feels much better Denies any chest pain, palpitation and SOB Physical Exam Physical Exam: General- No acute distress Head- atraumatic Eyes- PERRL, EOMI, ENT- oropharynx clear Neck- supple, no JVD Lungs- clear to auscultation Heart- regular rhythm; no murmur Abdomen- normal bowel sounds, soft, nontender Extremities- no calf tenderness Neuro- alert, oriented x 3; PERRL, EOMI; no facial palsy; no dysarthria Skin- warm & dry Results & Data Results & Data ([facility]) Vital Signs (Past 12 Hours) Vital Signs Temp Pulse Pulse Resp BP Pulse Ox 09/14/20 23:00 37.5 C 90 16 118/81 98 09/14/20 20:01 37 C 85 16 127/82 100 09/14/20 15:37 37.0 C 87 18 123/83 99
[2020-09-15] MEDS: ACETAMINOPHEN 325 MG TAB PO PRN (00:18)
[2020-09-15] MEDS: ceFAZolin 1000MG 1,000 MG/7.5 ML SYR IV SCH ×2 (08:44→16:24)
[2020-09-15] MEDS: BIKTARVY PO SCH (08:45)
[2020-09-15] MEDS: DOCUSATE SODIUM/SENNA 50/8.6MG TAB PO SCH (08:45)
[2020-09-15 09:38] LABS: Hematocrit (blood only) 29.9 % (42-52); Mean Corpuscular Hemoglobin 31.5 pg (25-34); Mean Corpuscular Hgb Conc 33.4 g/dL (32-36); Mean Corpuscular Volume 94.3 fL (80-100); Mean Platelet Volume 8.9 fL (7.4-10.4); Platelet Count 281 K/uL (130-400); RDW Coefficient of Variation 14.2 % (11.5-14.5); RDW Standard Deviation 49.3 fL (36.4-46.3); Red Blood Count 3.17 M/uL (4.7-6.1)
[2020-09-15 10:01] LABS: BUN Creatinine Ratio 9.9 (10-20); Calcium 9.3 mg/dl (8.5-10.1); Creatinine Clr Calc Pharmacy 59.3 ml/min; Est GFR (African American) 64.3 ml/min; Est GFR (Non-African American) 55.5 ml/min; Potassium 3.5 mmol/L (3.5-5.1)
--- NOTE | 2020-09-15 21:48 | Hospitalist Progress Note ---
Date of Service September 15, 2020 Assessment & Plan (1) Severe sepsis: (2) Acute UTI: Plan: Meet sepsis criteria with elevated tachycardia, febrile, WBC and abnormal UA COVID 19 negative CXR showed no acute finding CT abd/pelvis showed bladder wall appears thickened and trabeculated. received Dapto/ Cefepime and IV Zosyn on admission Urine cx grew gram negative bacilli - Ecoli Echo showed no evidence of vegetation IV Zosyn was discontinued and transition to Cefazolin Continue IV cefazolin for now Will transition to p.o. antibiotic on discharge Blood cx no growth Continue monitor closely IRIS Possible related to dehydration/sepsis unknown baseline creatinine, Pt said that no providers in the past mentioned that he had any hx CKD Creatinine on admission 1.5 than increased to 1.68 Creatinine improved to 1.3 today Receive IV fluid Resolved HIV Continue HIV meds treatment Hypotension Mostly due to sepsis/dehydration Continue to hold Lisinopril/HCTZ Continue IVF Continue monitor BP Dizziness Possible related to hypotension CT head showed no acute finding Clinically improves Anemia Hgb on admission 12.5 Hemoglobin improved to 10 Continue monitor CBC DVT prophylaxis due to new onset of anemia Full code Disposition Discharge home tomorrow Admission and Anticipated Discharge Date Admission Date: September 13, 2020 Subjective Pt was seen and examined for follow up of fever Lying in bed with no acute distress Pt said that he feels much better He said that last night he felt chills Denies any chest pain, palpitation and SOB Physical Exam Physical Exam: General- No acute distress Head- atraumatic Eyes- PERRL, EOMI, ENT- oropharynx clear Neck- supple, no JVD Lungs- clear to auscultation Heart- regular rhythm; no murmur Abdomen- normal bowel sounds, soft, nontender Extremities- no calf tenderness Neuro- alert, oriented x 3; PERRL, EOMI; no facial palsy; no dysarthria Skin- warm & dry Results & Data Results & Data ([facility]) Vital Signs (Past 12 Hours) Vital Signs Temp Pulse Resp BP Pulse Ox 09/15/20 19:48 37.1 C 85 18 106/72 99 09/15/20 16:07 36.8 C 87 18 113/74 100 09/15/20 11:45 36.7 C 86 18 113/72 100
[2020-09-16] MEDS: ceFAZolin 1000MG 1,000 MG/7.5 ML SYR IV SCH ×2 (00:30→08:05)
[2020-09-16] MEDS: DOCUSATE SODIUM/SENNA 50/8.6MG TAB PO SCH (08:05)
[2020-09-16] MEDS: BIKTARVY PO SCH (08:05)
--- NOTE | 2020-09-16 13:12 | Discharge Summary ---
Date of Service September 16, 2020 Admission HPI Per Admitting Provider History obtained from patient and records. Medical history significant for HIV disease on Rx, hypertension, BPH, past tobacco/alcohol abuse. Patient has not been feeling well for about a month. Intermittent fever and chills with episodic headaches. Transient diarrhea symptoms. Dizziness described as lightheadedness upon motion and exertion which has led to some falls causing left rib pain. No shortness of breath. No unusual cough symptoms. Unquantified weight loss. Patient compliant with HIV medications. Recent HIV blood work from a few months ago was good as per patient. More recently, patient noted constipation symptoms with dysuria. Some abdominal discomfort without black/bloody stools. At the ER, patient received daptomycin for sepsis. SBP 70 to 80s at one point at the ER. Medical History as above Surgical History : None Family History : Heart disease Personal/Social history : Past tobacco/alcohol abuse, currently unemployed Admission Exam Per Admitting Provider GENERAL: Comfortable, pleasant, no respiratory distress SKIN: Pallor,, warm HEENT: Pale palpebral conjunctivae, no ptosis, dry buccal mucosa NECK : Supple, no tenderness CHEST : CTA, left chest wall tenderness HEART : Tachycardic, no obvious murmurs ABDOMEN: Some distention, nontender EXTREMITIES : No LE swelling/tenderness, no other conspicuous deformities noted NEUROLOGIC : Coherent, no facial asymmetry, no other gross focality Principal Diagnosis (1) Severe sepsis: (2) Urinary tract infection (UTI) (3) Acute Kidney Injury (4) HIV (6) Hypotension (7) Anemia Discharge Data Allergies Allergy/AdvReac Type Severity Reaction Status Date / Time No Known Allergies Allergy Unverified 09/12/20 21:50 Consultations 09/12/20 22:49 ED Decision to Admit Stat Ordered Studies 09/12/20 20:27 CT head/brain wo con Stat 09/13/20 01:21 CT abd pelvis wo con Urgent CT SCAN OF THE ABDOMEN AND PELVIS WITHOUT IV CONTRAST CLINICAL HISTORY: Generalized abdominal pain. Diarrhea and fever. COMPARISON STUDY: No priors. TECHNIQUE: CT scan of the abdomen and pelvis is performed from the lung bases to the proximal femora. Images are reviewed in the axial, sagittal, and coronal planes. IV contrast was not administered for this examination. Note that the examination was performed in significant suboptimal fashion without oral and IV contrast. A dose lowering technique was utilized adhering to the principles of ALARA. CT DOSE: 332.32 mGy.cm FINDINGS: Lung bases: The heart is normal in size and without pericardial effusion. There is mild elevation of the right hemidiaphragm. The lung bases are clear. There is a small hiatal hernia. Liver: The unenhanced liver is normal in size, contour, and attenuation. There is no intrahepatic biliary ductal dilatation. Gallbladder: Unremarkable. Spleen: Normal in size and attenuation. Pancreas: Unremarkable. Adrenal glands: Unremarkable. Kidneys: The unenhanced kidneys are normal in size and without hydronephrosis. There is a 4 mm nonobstructing calculus in the left lower pole. No right renal calculi are identified. No ureteral stone is seen. There is no evidence of contour deforming renal mass lesion. Abdominal vasculature: The abdominal aorta is normal in course and caliber noting moderate atherosclerotic calcification. Bowel: There is no bowel obstruction. Moderate fecal retention is seen throughout the colon. The appendix is well-visualized and normal. Peritoneum: There is no intraperitoneal free air or abdominal ascites. There is a fat-containing umbilical hernia. Lymphadenopathy: None. Pelvic viscera: The prostate gland is mildly enlarged and heterogeneous. The bladder wall appears thickened and trabeculated. Skeletal structures: No lytic or blastic lesions are seen. There are subacute appearing/healing left anterolateral 8th through 11th rib fractures. IMPRESSION: 1. Suboptimal examination without oral and IV contrast. 2. Moderate constipation. No bowel obstruction is seen. 3. The bladder wall appears thickened and trabeculated. This may be related to chronic outlet obstruction. Correlate with clinical findings and urinalysis. 4. Left-sided nephrolithiasis. 5. There are subacute appearing left lower rib fractures. Clinical correlation will be required. ACT 112: Negative or not required by law. Electronically signed by: Wicho Simon M.D. 09/13/2020 8:20 AM Dictated: 09/13/20812Transcribed: 09/13/20812 CT head/brain wo con CLINICAL HISTORY: 60 years-old Male with NICOLAS. Acute headache TECHNIQUE: Multiple axial CT images of the head were obtained without contrast. A dose lowering technique was utilized adhering to the principles of ALARA. CT DOSE: 614.27 mGy.cm COMPARISON: None. FINDINGS: No acute intracranial hemorrhage, midline shift, intracranial mass, hydrocepha aubrey, territorial ischemia or abnormal extra-axial collection. Mild involutional changes. The calvarium is intact. Mastoid air cells are clear. Mild polypoid thickening of the left maxillary sinus with mild mucosal thickening of the ethmoid air cells. Unremarkable soft tissues and orbits. IMPRESSION: No acute intracranial abnormality. ACT 112: Negative or not required by law. The above report was generated using voice recognition software. It may contain grammatical, syntax or spelling errors. Electronically signed by: Monroe Lowery M.D. 09/12/2020 9:58 PM Dictated: 09/12/202153Transcribed: 09/12/202153 TECHNIQUE: PA view of the chest with 4 views of the left ribs FINDINGS: Cardiomediastinal and hilar silhouettes are within normal limits. No pneumothorax, pleural effusion, airspace consolidation or overt pulmonary edema. Bones of the chest appear grossly intact. Mild cortical thickening of the lateral left eighth and ninth ribs suggestive of chronic fractures. Acute minimally displaced fractures involving the anterolateral aspects of the left eighth through 11th ribs. IMPRESSION: 1. Acute minimally displaced fractures of the anterolateral left eighth through 11th ribs. 2. No pneumothorax. ACT 112: Negative or not required by law. The above report was generated using voice recognition software. It may contain grammatical, syntax or spelling errors. Electronically signed by: Monroe Lowery M.D. 09/12/2020 10:18 PM Dictated: 09/12/202214Transcribed: 09/12/202214 Hospital Course (1) Severe sepsis: (2) Acute UTI: Meet sepsis criteria with elevated tachycardia, febrile, WBC and abnormal UA COVID 19 negative CXR showed no acute finding CT abd/pelvis showed bladder wall appears thickened and trabeculated. received Dapto/ Cefepime and IV Zosyn on admission Urine cx grew gram negative bacilli - Ecoli Echo showed no evidence of vegetation IV Zosyn was discontinued and transition to Cefazolin Continue IV cefazolin for now Will transition to p.o. antibiotic on discharge Blood cx no growth Continue monitor closely IRIS Possible related to dehydration/sepsis unknown baseline creatinine, Pt said that no providers in the past mentioned that he had any hx CKD Creatinine on admission 1.5 than increased to 1.68 Creatinine improved to 1.3 today Receive IV fluid Resolved HIV Continue HIV meds treatment Hypotension Mostly due to sepsis/dehydration Continue to hold Lisinopril/HCTZ Continue IVF Continue monitor BP Dizziness Possible related to hypotension CT head showed no acute finding Clinically improves Anemia Hgb on admission 12.5 Hemoglobin improved to 10 Continue monitor CBC DVT prophylaxis due to new onset of anemia Full code Disposition Discharge home tomorrow Total Time Total Time Spent Total Time Spent (In Minutes): 35 minutes Discharge Plan Discharge Items Patient Disposition: Home - Self-Care Reason For Visit: SEPSIS, HYPOTENSION Discharge Diagnosis: (1) Severe sepsis: (2) Urinary tract infection (UTI) (3) Acute Kidney Injury (4) HIV (6) Hypotension (7) Anemia Activity: Resume your previous activity Non-emergency contact: Primary Care Provider Call non-emergency contact if: you have any medication questions and your temperature is above 101 Follow-up/Referrals: PCP,NO [Primary Care Provider] - Diet: Heart Healthy Addtl Attending Provider Instructions: Follow up with your primary care provider within 1 week (please call to schedule for the appointment ) Check BMP to monitor your renal function within 1 week after starting your blood pressure medication (Lisinopril/Hydrochlorothiazide) Ok to resume your blood pressure medication if blood pressure starts increasing in the 120/80 Fall precaution Seek medical attention if your symptoms reoccur Complete the course of the antibiotic Pending Studies at Discharge: Yes Studies:: FOBT pending Stand-Alone Forms: My [facility] [employer], Smoking Cessation Medications and DC Order Prescriptions: Continued tamsulosin 0.4 mg capsule 0.4 mg PO PM RF: 0 lisinopril-hydrochlorothiazide 10-12.5 mg tablet 1 tab PO QAM RF: 0 Biktarvy 50-200-25 mg tablet 1 tab PO QAM RF: 0 Discontinued ibuprofen 200 mg Tablet 400 mg PO Q6H PRN (Reason: Pain) RF: 0 Discharge Orders: Discharge Order (Routine); Ordered 09/16/20 Ordered By: Alexandro Acevedo Admission Data Admit Date/Time: 09/13/20 01:24 Attending Provider: Alexandro Acevedo Admit Provider: Rashad Garrett Primary Care Provider: PCP,NO Other Providers: Rashad Garrett Other Interventions: Discharge Summary Assessment (RN) Last Done: 09/16/20 13:35
[2020-09-16] MEDS ORDERED: cephALEXin 500 MG CAP PO STA (13:22)
== END 2020-09-16 14:42 | disposition home or self-care (01) | DRG 975 ==
LOC: ED 17:22 → SUATTDRO 09-13 01:24 → 2S 09-13 01:24